=== PATIENT | male | born 1985 | race Caucasian/White ===

== ENCOUNTER 2019-10-03 18:18 | Emergency (ER) | payer SELFPAY ==
--- NOTE | 2019-10-03 19:43 | EDM.PDOCBH ---
ED HPI GENERAL MEDICAL PROBLEM - General Chief Complaint: Behavioral/Psych Stated Complaint: BEHAVIORAL Time Seen by Provider: 10/03/19 18:20 Source of Information: Reports: Patient History Limitations: Reports: No Limitations - History of Present Illness INITIAL COMMENTS - FREE TEXT/NARRATIVE: Patient is brought to the emergency department today by his aunt uncle and a family friend for substance abuse evaluation. This patient really does not want to be in the emergency department and feels that he was brought here against his will by his family. He does admit to using methamphetamine by smoking it about 3 times a month most recently 1 month ago. He drinks alcohol once to twice a week last time on Monday where he had 3 shots of fireball. At this time in the emergency department he is without any complaints. His family wants him to get into treatment which he does not want to and he is not prepared to start. Currently lives in [facility] with his friends. He is rather estranged from his immediate family such as his father and siblings. He denies any hallucinations or delusions. No suicidal or homicidal ideation. No chest pain or shortness of breath or difficulty breathing. No abdominal pain nausea or vomiting. No fever no chills. No cough or congestion. Once again he is uninterested in treatment at this time. - Related Data Allergies Allergy/AdvReac Type Severity Reaction Status Date / Time No Known Allergies Allergy Verified 10/03/19 18:39 Home Meds: Home Meds . [No Known Home Meds] 10/03/19 [History] Past Medical History Psychiatric History: Reports: Addiction Social & Family History - Tobacco Use Smoking Status *Q: Current Every Day Smoker Years of Tobacco use: 10 Packs/Tins Daily: 0.2 - Alcohol Use Days Per Week of Alcohol Use: 1 Number of Drinks Per Day: 4 Total Drinks Per Week: 4 - Recreational Drug Use Recreational Drug Use: Yes Recreational Drug Type: Reports: Marijuana/Hashish, Methamphetamine Recreational Drug Use Frequency: Weekly Recreational Drug Last Use: 09/29/19 ED ROS GENERAL - Review of Systems Review Of Systems: Comprehensive ROS is negative, except as noted in HPI. ED EXAM, BEHAVIORAL HEALTH - Physical Exam Exam: See Below Exam Limited By: No Limitations General Appearance: Alert, WD/WN, No Apparent Distress Eye Exam: Bilateral Eye: EOMI, PERRL Ears: Normal External Exam Nose: Normal Inspection Throat/Mouth: Normal Inspection, Normal Lips, Normal Teeth, Normal Voice, No Airway Compromise Head: Atraumatic, Normocephalic Neck: Normal Inspection Respiratory/Chest: No Respiratory Distress, Lungs Clear, Normal Breath Sounds, No Accessory Muscle Use Cardiovascular: Normal Peripheral Pulses, Regular Rate, Rhythm. No: Tachycardia GI/Abdominal: Normal Bowel Sounds, Soft, Non-Tender (Male) Exam: Deferred Rectal (Males) Exam: Deferred Extremities: Normal Inspection, No Pedal Edema Neurological: Alert, Normal Mood/Affect, CN II-XII Intact, Normal Cognition, Normal Reflexes, No Motor/Sensory Deficits, Oriented x 3 Psychiatric: Alert, Normal Affect, Normal Cognition, Oriented, Depressed Mood. No: Tearful, Agitated, Disoriented, Uncooperative, Withdrawn, Flight of Ideas, Homicidal Thoughts, Phobic, Quaker Delusions, Suicidal Plan, Suicidal Thoughts, Tangential Thoughts, Auditory Hallucinations, Visual Hallucinations, Grandiose Thoughts, Pressured Speech, Paranoid Thoughts, Threatening Behavior Skin Exam: Warm, Dry, Intact, Normal color, No rash COURSE, BEHAVIORAL HEALTH COMP - Course Vital Signs: Last Vital Signs Temp 37.3 C 10/03/19 18:18 Pulse 101 H 10/03/19 18:18 Resp 16 10/03/19 18:18 BP 135/86 10/03/19 18:18 Pulse Ox 98 10/03/19 18:18 Orders, Labs, Meds: Active Orders 24 hr Category Date Time Status ACETAMINOPHEN [CHEM] Stat Lab 10/03/19 18:37 Ordered CBC WITH AUTO DIFF [HEME] Stat Lab 10/03/19 18:37 Ordered COMPREHENSIVE METABOLIC PN,CMP [CHEM] Stat Lab 10/03/19 18:37 Ordered DRUG SCREEN, URINE [URCHEM] Stat Lab 10/03/19 18:37 Ordered ETHANOL BLOOD MEDICAL [CHEM] Stat Lab 10/03/19 18:37 Ordered MAGNESIUM [CHEM] Stat Lab 10/03/19 18:37 Ordered SALICYLATE [REF] Stat Lab 10/03/19 18:37 Ordered UA RFX ABRIL AND CULT IF INDIC [URIN] Stat Lab 10/03/19 18:37 Ordered Medical Clearance: 10/03/19 22:16 The patient denies any labs or urine drug screen because he really does not need medical clearance because he is uninterested in treatment at this time. Which I agree with him which I feel would be a waste of time if he is not ready himself to look for assistance. Job which he attends regularly he reports. Not at risk of harm to himself or others. I did have him talk with a screener through the [facility] which she did agree to so that when he does become interested and ready for treatment for his substance abuse disorder he knows how to reach out in order to begin. Have a very extended long conversation that the patient did give me verbal consent to talk to his family and friend that was in the emergency department. I explained to them that we are unable to for someone and alcohol or substance abuse treatment. Given him the resources for when he is interested for treatment or assistance that he can reach out to. They are comfortable with this plan and their questions are answered. Departure - Departure Time of Disposition: 19:31 Disposition: Home, Self-Care 01 Clinical Impression: Methamphetamine abuse - Discharge Information Instructions: Stimulant Use Disorder-Methamphetamines Referrals: PCP,None [Primary Care Provider] - Forms: ED Department Discharge Additional Instructions: Contact the screeners at [facility] as guided by them when and if you are interested. If you develop any suicidal or homicidal ideation please contact 911 Return to the ED if new or worsening symptoms. When you are ready for treatment please contact the [facility] for assistance. Sepsis Event Note - Evaluation Sepsis Screening Result: No Definite Risk - Focused Exam Vital Signs: Vital Signs Temp Pulse Resp BP Pulse Ox 10/03/19 18:18 37.3 C 101 H 16 135/86 98 Date Exam was Performed: 10/03/19 Time Exam was Performed: 22:13 - My Orders Last 24 Hours: My Active Orders 10/03/19 18:37 ACETAMINOPHEN [CHEM] Stat CBC WITH AUTO DIFF [HEME] Stat COMPREHENSIVE METABOLIC PN,CMP [CHEM] Stat DRUG SCREEN, URINE [URCHEM] Stat ETHANOL BLOOD MEDICAL [CHEM] Stat MAGNESIUM [CHEM] Stat SALICYLATE [REF] Stat UA RFX ABRIL AND CULT IF INDIC [URIN] Stat - Assessment/Plan Last 24 Hours: My Active Orders 10/03/19 18:37 ACETAMINOPHEN [CHEM] Stat CBC WITH AUTO DIFF [HEME] Stat COMPREHENSIVE METABOLIC PN,CMP [CHEM] Stat DRUG SCREEN, URINE [URCHEM] Stat ETHANOL BLOOD MEDICAL [CHEM] Stat MAGNESIUM [CHEM] Stat SALICYLATE [REF] Stat UA RFX ABRIL AND CULT IF INDIC [URIN] Stat
== END 2019-10-03 20:00 | disposition home or self-care (01) ==
LOC: VM.ED 18:18
DX: F15.10 Other stimulant abuse, uncomplicated (principal); F17.210 Nicotine dependence, cigarettes, uncomplicated
CPT/HCPCS: 99281; 99283-GF